=== PATIENT | female | born 1985 | race Caucasian/White ===

== ENCOUNTER 2024-10-24 08:13 | Outpatient (AMB) | payer OTHER, SELFPAY ==
--- NOTE | 2024-10-24 08:14 | AM.OFFWIN_ITS ---
Intake Vital Signs 3 10/24/24 08:15 Weight 256 lb BP 118/70 Blood Pressure Location Lt brachial Position Sitting Pulse 93 Pulse Source Pulse Oximeter Pulse Oximetry (%) 96 Oxygen Delivery Method Room Air Intake Visit Reasons: [employer]-rt hand midfinger cut Intake Note: Patient here for right middle finger cut that happened yesterday. Patient Tobacco Use Status: Never used Tobacco Allergies No Known Allergies Allergy (Verified 10/24/24 08:16) Do you need a note to return to daycare/school/sports/work: No HPI HPI Comments 2 History of Present Illness0 Details 39 y/o Female patient who presents to [facility] walk in clinic with c/o Right middle finger Cut. States yesterday evening (@ 5p), she was using a Mandoline Slicer, chopping Potatoes when she accidentally sliced right middle finger. She is up to date with her Tdap Immunization. [facility] Medical History (Updated 10/24/24 @ 08:39 by Andreia Jimenez NP) Laceration of finger nail bed Social History Patient Tobacco Use Status: Never used Tobacco Review of Systems Const All systems reviewed & are unremarkable except as noted in HPI and below Physical Exam Vital Signs: Last Vital Signs Pulse 93 10/24/24 08:15 BP 118/70 10/24/24 08:15 Pulse Ox 96 10/24/24 08:15 Oxygen Delivery Method Room Air 10/24/24 08:15 Const General: no acute distress Nutritional Appearance: overweight Orientation/consciousness: patient oriented x3 Neuro General: patient oriented x3 Extrem Right upper extremity: Extremity exam: right hand Details: normal capillary refill, tenderness, normal ROM of fingers and no swelling Hand/finger images: 2 1. Superficial Cut right middle finger, chunk of tissue and finger Tip missing. Psych Speech and movement: Normal speech and movement present Assessment & Plan Assessment & Plan (1) Laceration of finger nail bed: Code(s): S61.319A - Laceration without foreign body of unspecified finger with damage to nail, initial encounter Qualifiers: Encounter type: initial encounter Qualified Code(s): S61.319A - Laceration without foreign body of unspecified finger with damage to nail, initial encounter Plan: Cleaned wound with Hydrogen Peroxide. No bleeding. Dress the wound with Bacitracin Topical and Gauze. Wound superficial, no need for stitches. Coding Level of Care Code New Pt Level 4 (12808) Diagnoses Laceration of nail bed of finger, initial encounter S61.319A Encounter type: initial encounter Time Spent (min) 20
[2024-10-24 08:15] VITALS: BP 118/70; PULSE 93; O2SAT 96
== END 2024-10-24 09:07 | disposition home or self-care (01) ==
PROVIDERS: Visit Provider Nurse Practitioner Family
DX: S61.312A Laceration without foreign body of right middle finger with damage to nail, initial encounter (principal)

== ENCOUNTER → 2024-10-24 08:13 | Outpatient (BNVA) | payer OTHER, SELFPAY | PROVIDERS: Visit Provider Nurse Practitioner Family ==

== ENCOUNTER 2025-04-14 12:45 | Outpatient (AMB) | payer OTHER, SELFPAY ==
--- NOTE | 2025-04-14 13:20 | MHC.OFFWIV ---
Intake Vital Signs 04/14/25 13:22 Height 5 ft 7 in Weight 258 lb BMI 40.4 BP 128/80 Blood Pressure Location Lt brachial Position Sitting Pulse 88 Pulse Source Pulse Oximeter Temp 98.1 F Temp Source Oral Pulse Oximetry (%) 99 Oxygen Delivery Method Room Air Intake Visit Reasons: EP Body aches, fatigue, headaches,cough,congestion Patient Tobacco Use Status: Never used Tobacco Allergies No Known Allergies Allergy (Verified 04/14/25 13:22) Do you need a note to return to daycare/school/sports/work: No HPI HPI Comments History of Present Illness Details This is a 40-year-old female who presented to the walk-in clinic complaining of viral URI symptoms x 1 week. Patient is reporting fatigue, myalgias/arthralgias, nasal congestion, rhinorrhea, mild sore throat, and a cough, which is sometimes productive of clear yellow sputum. She denies any fevers or chills. She reports positive sick contact with her 6-year-old son, who had a viral URI and then he was diagnosed with strep pharyngitis. [facility] Medical History (Updated 10/24/24 @ 08:39 by Andreia Jimenez NP) Laceration of finger nail bed Social History Patient Tobacco Use Status: Never used Tobacco Review of Systems Const All systems reviewed & are unremarkable except as noted in HPI and below Reports no additional complaints Eyes Reports no additional complaints ENT Reports no additional complaints Card Reports no additional complaints Resp Reports no additional complaints GI Reports no additional complaints Reports no additional complaints Musc Reports no additional complaints Skin/Breast Reports system reviewed and no additional complaints, except as documented Neuro Reports no additional complaints Psych Reports no additional complaints Endo Reports no additional complaints Kenneth/Lymph Reports no additional complaints Aller/Immun Reports no additional complaints Physical Exam Exam Exam: Vital signs reviewed. Constitutional: Non-toxic appearing. No acute distress. Well-developed and well-nourished. HEENT: Normocephalic and atraumatic. Tympanic membranes without erythema, edema, or bulging bilaterally. External auditory canals without erythema or edema bilaterally. Moist mucous membranes. Mild posterior pharyngeal erythema without tonsillar edema/hypertrophy or exudates. Skin: Warm and dry. No rashes or lesions noted. Neck: Full and painless range of motion. Slightly boggy cervical lymphadenopathy. Cardio: Regular rate and rhythm. No murmurs, gallops, or rubs. No lower extremity edema. Pulmonary: No respiratory distress. No accessory muscle usage. Clear to auscultation bilaterally without wheezing, crackles, or rhonchi. Gastrointestinal: Soft, nontender, and nondistended in all 4 quadrants. Normoactive bowel sounds in all 4 quadrants. Musculoskeletal: Normal range of motion in joints throughout the body. No deformity or other signs of injury. Neuro: Alert and oriented x4. Cranial nerves 2-12 grossly intact. No focal deficits appreciated. Psych: Normal mood and affect. Vital Signs: Last Vital Signs Temp 98.1 F 04/14/25 13:22 Pulse 88 04/14/25 13:22 BP 128/80 04/14/25 13:22 Pulse Ox 99 04/14/25 13:22 Oxygen Delivery Method Room Air 04/14/25 13:22 BMI result Body Mass Index 40.4 Assessment & Plan Assessment & Plan (1) Acute upper respiratory infection, unspecified: Code(s): J06.9 - Acute upper respiratory infection, unspecified Plan 40-year-old female who presented to the walk-in clinic complaining of viral URI symptoms x 1 week. Patient presenting with signs and symptoms most consistent with acute viral upper respiratory tract infection, rapid strep test negative. I recommended symptomatic management including rest, increased fluids, advil/tylenol for pain/fever, and over the counter throat lozenges/decongestants. Patient advised to follow up here or go to the emergency room for worsening/persistent symptoms. Patient verbalized understanding and is agreeable with the plan. Coding Level of Care Code Est Pt Level 3 (29804) Diagnoses Acute upper respiratory infection, unspecified J06.9
[2025-04-14 13:22] VITALS: BP 128/80; PULSE 88; TEMP 36.7; O2SAT 99; BMI 40.4
== END 2025-04-14 14:16 | disposition home or self-care (01) ==
PROVIDERS: Visit Provider Physician Assistant Medical
DX: J06.9 Acute upper respiratory infection, unspecified (principal)